=== PATIENT | female | born 1940 ===

== ENCOUNTER 2021-04-30 22:39 | Emergency (ER) | payer SELFPAY ==
--- NOTE | 2021-05-01 03:18 | Cat Scan Report ---
CT HEAD WITHOUT CONTRAST INDICATION: headache, dizziness. TECHNIQUE: All CT scans at this location are performed using CT dose reduction for ALARA by means of automated e xposure control. COMPARISON: None available. FINDINGS: HEMORRHAGE: None. EXTRA-AXIAL SPACES: Normal in size and morphology for the patient's age. VENTRICULAR SYSTEM: Normal in size and morphology for the patient's age. BRAIN PARENCHYMA: No acute findings. 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 MIDLINE SHIFT OR HERNIATION: None. ORBITS: Normal as visualized. SOFT TISSUES OF HEAD: Normal. CALVARIUM: Normal. VISUALIZED PARANASAL SINUSES AND MASTOID AIR CELLS: Clear. ADDITIONAL FINDINGS: None. IMPRESSION: 1. No acute intracranial abnormality. Signer Name: Denton Hansen MD Signed: 05/01/2021 3:14 AM Workstation Name: [id number]
[2021-05-01 03:26] LABS: Basophils % (Auto) 0.5 % (0.0-1.8); Eosinophils # (Auto) 0.1 K/mm3 (0.0-0.4); Hematocrit 39.2 % (30.3-42.9); Hemoglobin 12.7 gm/dl (10.1-14.3); Lymphocytes # (Auto) 1.4 K/mm3 (1.2-5.4); Lymphocytes % (Auto) 23.4 % (13.4-35.0); Mean Corpuscular HGB Conc 32 % (30-34); Mean Corpuscular Volume 78 fl (79-97); Monocytes # (Auto) 0.3 K/mm3 (0.0-0.8); Monocytes % (Auto) 5.4 % (0.0-7.3); Platelet Count 379 K/mm3 (140-440); Red Blood Count 5.05 M/mm3 (3.65-5.03)
[2021-05-01 03:31] LABS: Bilirubin,Urine NEG (Negative); Blood,Urine NEG (Negative); Color,Urine Straw (Yellow); Protein,Urine <15 mg/dL mg/dL (Negative); Urobilinogen,Urine < 2.0 mg/dL (<2.0)
[2021-05-01 03:36] LABS: INR 0.96 (0.87-1.13)
[2021-05-01 03:37] LABS: Partial Thromboplastin Time 37.4 Sec. (24.2-36.6)
[2021-05-01 03:40] LABS: Blood Urea Nitrogen 19 mg/dL (7-17); Calcium 9.4 mg/dL (8.4-10.2); Hemolysis Index 16
[2021-05-01 03:41] LABS: BUN/Creatinine Ratio 27
[2021-05-01 03:44] VITALS: BP 153/68
--- NOTE | 2021-05-01 04:02 | Emergency Department Report ---
ED Dizziness HPI - General Chief Complaint: High BP Stated Complaint: NAUSEA/SHAKEY/HEADACHE Time Seen by Provider: 05/01/21 01:52 Source: patient Mode of arrival: Ambulatory Limitations: No Limitations - History of Present Illness Initial Comments: 81-year-old female, history of hypertension, presents to ED with complaint of dizziness x1 week. Patient states she has been having intermittent episodes of feeling dizzy when she bends down and then stands back up. Patient describes the dizziness as room spinning. She denies feeling as though she is going to pass out. She denies feeling unsteady when she walks or having to hold onto things as she ambulates. She also reports intermittent headaches, very mild in nature, that have also been coming and going. Patient reports nausea, denies any vomiting. Patient states today she felt as though she had hot and cold flashes. Patient denies any cough, shortness of breath, chest pain. MD Complaint: dizziness -: week(s) (1) Timing: gradual onset Description: "room spinning" History of Same: No History of Trauma: No Severity: mild Improves With: remaining still Worsens With: position Associated Symptoms: fever/chills. denies: chest pain, cough, shortness of breath, syncope - Related Data Previous Rx's Medication Instructions Recorded Last Taken Type Nitrofurantoin [place]/M-Cryst 100 mg PO Q12HR 7 Days #14 capsule 05/01/21 Unknown Rx [Macrobid CAP] Allergies Allergy/AdvReac Type Severity Reaction Status Date / Time No Known Allergies Allergy Unverified 04/30/21 23:57 ED Review of Systems ROS: Stated complaint: NAUSEA/SHAKEY/HEADACHE Other details as noted in HPI Comment: All other systems reviewed and negative Constitutional: chills, fever Respiratory: denies: cough, shortness of breath Cardiovascular: denies: chest pain Gastrointestinal: nausea. denies: abdominal pain, vomiting, diarrhea Musculoskeletal: denies: myalgia Neurological: headache, vertigo. denies: weakness, numbness, paresthesias, confusion, abnormal gait ED Past Medical Hx - Past Medical History Previous Medical History?: Yes Hx Hypertension: Yes - Surgical History Past Surgical History?: No - Medications Home Medications: Home Medications Medication Instructions Recorded Confirmed Last Taken Type Nitrofurantoin [place]/M-Cryst 100 mg PO Q12HR 7 Days #14 capsule 05/01/21 Unknown Rx [Macrobid CAP] ED Physical Exam - General Limitations: No Limitations General appearance: alert, in no apparent distress - Head Head exam: Present: atraumatic, normocephalic - Eye Eye exam: Present: normal appearance, PERRL, EOMI - ENT ENT exam: Present: mucous membranes moist - Neck Neck exam: Present: normal inspection - Respiratory Respiratory exam: Present: normal lung sounds bilaterally. Absent: respiratory distress - Cardiovascular Cardiovascular Exam: Present: regular rate, normal rhythm - GI/Abdominal GI/Abdominal exam: Present: soft. Absent: distended, tenderness - Extremities Exam Extremities exam: Present: normal inspection - Neurological Exam Neurological exam: Present: alert, oriented X3, CN II-XII intact, normal gait. Absent: motor sensory deficit - Psychiatric Psychiatric exam: Present: normal affect, normal mood - Skin Skin exam: Present: warm, dry, intact, normal color ED Course Vital Signs 04/30/21 05/01/21 23:55 03:42 Temperature 97.9 F 98.1 F Pulse Rate 92 H 82 Respiratory 18 16 Rate Blood Pressure 212/81 153/68 O2 Sat by Pulse 97 95 Oximetry ED Medical Decision Making - Lab Data Result diagrams: 05/01/21 03:07 05/01/21 03:07 - EKG Data -: EKG Interpreted by Me EKG shows normal: sinus rhythm, axis, QRS complexes, ST-T waves Rate: normal - EKG Data Interpretation: other (Right bundle branch block, left anterior fascicular block) - Radiology Data Radiology results: report reviewed, image reviewed - Medical Decision Making 81-year-old female, history of hypertension, presents to ED with intermittent dizziness x1 week when she bends down and then stands back up. Described as r oom spinning. No syncope, no ataxia. She also reported intermittent headaches, very mild in nature, that have also been coming and going. No headache at this time. Patient reported nausea, no vomiting, hot and cold flashes. Patient denied any cough, shortness of breath, chest pain. Initial BP here in the ED was 212/81. Patient reports she takes amlodipine and losartan, which she has been compliant with. No neuro deficits on exam. CT head negative for any abnormalities. Labs unremarkable except for small amount of WBCs in the urine. Repeat blood pressure improved without intervention to 153/68. Patient will be discharged with prescription for antibiotics. Outpatient follow-up advised, return precautions given. - Differential Diagnosis Infection, intracranial abnormality, hypertensive dizziness Critical care attestation.: If time is entered above; I have spent that time in minutes in the direct care of this critically ill patient, excluding procedure time. ED Disposition Clinical Impression: UTI (urinary tract infection) Disposition: 01 HOME / SELF CARE / HOMELESS Is pt being admited?: No Condition: Stable Instructions: Urinary Tract Infection, Adult, [id number] Prescriptions: Nitrofurantoin [place]/M-Cryst [Macrobid CAP] 100 mg PO Q12HR 7 Days #14 capsule Time of Disposition: 04:07 Print Language: MAURITIAN
--- NOTE | 2021-05-01 09:17 | Electrocardiograph Report ---
[facility] Test Date: 2021-05-01 Test Time: 03:34:12 Pat Name: AFSHAN VALENTIN Department: Room: Gender: F Retail Sales Advisor: JESS : [id number] Requested By: CAMERON PRINGLE Order Number: [id number] Reading MD: Leroy Devine Measurements Intervals [place] Rate: 75 P: 47 [place]: 200 QRS: -51 QRSD: 141 T: 28 QT: 415 QTc: 464 Interpretive Statements Sinus rhythm RBBB and LAFB No previous ECG available for comparison Electronically Signed On 05-01-2021 9:17:08 EDT by Leroy Devine
== END 2021-05-01 04:30 | disposition home or self-care (01) ==
LOC: ED 22:39
DX: N39.0 Urinary tract infection, site not specified (principal); R79.1 Abnormal coagulation profile; I10 Essential (primary) hypertension; Z79.899 Other long term (current) drug therapy
CPT/HCPCS: 36415; 70450; 80048; 81001; 84484; 85025; 85610; 85730; 93005; 99284